=== PATIENT | male | born 1990 | race Two or more races ===

== ENCOUNTER 2023-03-19 11:13 | Emergency (ER) | payer SELFPAY ==
[~2023-03-19] VITALS: Ht 182.9 cm; Wt 81.8 kg
[2023-03-19 11:24] VITALS: BP 107/78; PULSE 94; RESP 18; TEMP 97.9; O2SAT 100
[2023-03-19] MEDS ORDERED: insulin regular, human 10 units/0.1 ml syringe SQ ONE (11:55)
== END 2023-03-19 12:23 ==
LOC: ER 11:14
DX: E11.65 Type 2 diabetes mellitus with hyperglycemia (principal)
CPT/HCPCS: 82948; 96372; 99283; J1815